=== PATIENT | male | born 1970 | race Two or more races ===

== ENCOUNTER 2025-02-27 18:05 | Emergency (ER) | payer MEDICAID ==
[~2025-02-27] VITALS: Ht 172.7 cm; Wt 102.3 kg
[2025-02-27 18:11] VITALS: TEMP 98.8
[2025-02-27] MEDS ORDERED: PRAZ5 PO (18:24)
[2025-02-27] MEDS ORDERED: IRBE150T51 PO (18:24)
[2025-02-27] MEDS ORDERED: FURO80TA4 PO (18:24)
[2025-02-27] MEDS ORDERED: AMLO2.5T96 PO (18:24)
[2025-02-27] MEDS ORDERED: NPH,100I SQ (18:37)
[2025-02-27] MEDS ORDERED: POLY510P31 PO (18:37)
[2025-02-27] MEDS ORDERED: SEVE800T39 PO (18:37)
[2025-02-27] MEDS ORDERED: METO100T14 PO (18:37)
[2025-02-27] MEDS ORDERED: CALC0.5C11 PO (18:37)
[2025-02-27] MEDS ORDERED: ATOR10TA69 PO (18:37)
[2025-02-27] MEDS ORDERED: LOTI10DR OU (18:37)
[2025-02-27] MEDS ORDERED: GABA-1181 PO (18:37)
[2025-02-27] MEDS ORDERED: IRBE300T26 PO (18:37)
[2025-02-27] MEDS ORDERED: AMLO10TA55 PO (18:37)
[2025-02-27] MEDS ORDERED: TIRZ7.5P SQ (18:37)
[2025-02-27 18:40] LABS: GLUCOMETER DEV NAME(LOC) ERT.7; GLUCOSE,POINT OF CARE 120 MG/DL (70-110)
[2025-02-27 18:55] LABS: PLATELET COUNT (AUTO) 330 K/uL (150-450); RED BLOOD CELL COUNT(AUTO) 2.90 MIL/uL (4.50-5.90); RED CELL DISTRIBUTION WIDTH 13.6 % (11.5-14.5); WHITE BLOOD COUNT (AUTO) 9.7 K/uL (4.5-11.0)
[2025-02-27 18:59] LABS: CALCIUM, TOTAL 8.1 mg/dL (8.8-10.5); CREATININE 13.37 mg/dL (0.60-1.30); GLOMERULAR FILTR. RATE CALC 4.0 mL/min (>60); GLUCOSE,RANDOM 120.0 mg/dL (70-110); SODIUM SERUM 138.0 mmol/L (136-145); UREA NITROGEN, BLOOD 75.0 mg/dL (7-18)
[2025-02-27 19:06] LABS: ASPARTATE AMINOTRANSFERASE 15.0 U/L (15-37); TOTAL PROTEIN, SERUM 6.4 g/dL (6.4-8.2)
[2025-02-27 19:21] LABS: APPEARANCE,URINE CLEAR (CLEAR); GLUCOSE, URINE (UA) 300-500 mg/dL (NEGATIVE); LEUKOCYTE ESTERASE ,URINE NEGATIVE (NEGATIVE); NITRATE,URINE NEGATIVE (NEGATIVE); OCCULT BLOOD,URINE SMALL (NEGATIVE); SPECIFIC GRAVITIY, URINE 1.011 (1.003-1.030)
[2025-02-27 19:42] LABS: SQUAMOUS EPITHELIAL CELL,UR Few /LPF (None Seen); SULFOSALICYLIC ACID,URINE 2+ (Negative)
[2025-02-28 01:12] VITALS: BP 141/66; PULSE 81; RESP 16; O2SAT 95
[2025-02-28] MEDS ORDERED: CEPH-558 PO (01:12)
[2025-02-28] MEDS: CefTRIAXone SODIUM 1 GM/VIAL IM ONE (01:46)
[2025-02-28] MEDS: LIDOCAINE/PF 1% 2 ML VIAL IM ONE (01:46)
== END 2025-02-28 02:57 | disposition home or self-care (01) ==
LOC: EMS 18:05
DX: N20.9 Urinary calculus, unspecified (principal); N39.0 Urinary tract infection, site not specified; I10 Essential (primary) hypertension; E11.9 Type 2 diabetes mellitus without complications; R06.02 Shortness of breath; Z79.4 Long term (current) use of insulin; Z79.85 Long-term (current) use of injectable non-insulin antidiabetic drugs; Z90.49 Acquired absence of other specified parts of digestive tract; Z79.899 Other long term (current) drug therapy
CPT/HCPCS: 99285; 74176; 80048; 80076; 81001; 82962; 83690; 83880; 85025; 36415; 93005; 96372; J0696; J3490; 81002